=== PATIENT | male | born 1970 | race Caucasian/White ===

== ENCOUNTER 2020-08-10 09:09 | Emergency (ER) | payer OTHER ==
[~2020-08-10] VITALS: Ht 167.6 cm; Wt 58.1 kg
[2020-08-10] MEDS ORDERED: PEPCID AC10 MG PO (09:14)
[2020-08-10 09:30] LABS: ABSOLUTE EOSINOPHILS 0.1 thou/uL (0.0-0.7); ABSOLUTE LYMPHOCYTES 2.1 thou/uL (0.8-5.3); ABSOLUTE MONOCYTES 0.8 thou/uL (0.0-1.2); ABSOLUTE NEUTROPHILS 7.8 thou/uL (1.6-8.1); BASOPHILS 0.3 %; EOSINOPHILS 0.5 %; HEMATOCRIT 30.3 % (42.0-52.0); HEMOGLOBIN 8.9 gm/dL (14.0-18.0); LYMPHOCYTES 19.6 %; MCH 23.4 pg (26.0-34.0); MCHC 29.5 g/dL (28.0-37.0); MCV 79.3 fL (80.0-100.0); MONOCYTES 7.1 %; MPV 6.8 fl. (7.2-11.1); NUCLEATED RBCS 0 /100WBC; PLATELET COUNT* 319 thou/uL (150-400); POLYS 72.5 %; RBC 3.82 mil/uL (4.50-6.00); RDW-CV 20.7 % (10.5-14.5); WBC 10.7 thou/uL (4.0-11.0)
[2020-08-10 09:39] LABS: CALCIUM 7.7 mg/dL (8.5-10.1); CREATININE 1.1 mg/dL (0.6-1.3); POTASSIUM 3.3 mmol/L (3.5-5.1)
[2020-08-10 09:44] LABS: APTT 25.9 Seconds (25.0-31.3); PROTIME 10.9 Seconds (9.20-11.50)
[2020-08-10 09:47] LABS: ALBUMIN 2.4 g/dL (3.4-5.0); TOTAL BILIRUBIN 0.3 mg/dL (<0.1-1.0); TOTAL PROTEIN 6.1 g/dL (6.4-8.2)
[2020-08-10] MEDS ORDERED: PROTONIX40 M4 PO (11:40)
[2020-08-10 11:45] VITALS: BP 177/102
--- NOTE | 2020-08-11 09:19 | EKG ---
[place] [address] ELECTROCARDIOGRAM REPORT Name: ELDER TUCKER Room: [facility]#: [id number] Admission: 08/10/20 Attend Phys: Discharge: 08/10/20 Date of : 74 Date of Service: 08/10/20924 Report #: [id number] THIS REPORT FOR: //name// [facility] ED Test Date: 2020-08-10 Test Time: 09:25:52 Pat Name: ELDER CAITLIN Department: Room: Gender: [employer] Preparation Teacher: : 1970 Requested By: Dawit Ware Order Number: [id number] MD: Elder Steinberg Measurements Intervals [place] Rate: 89 P: 85 CA: 123 QRS: 89 QRSD: 99 T: 79 QT: 395 QTc: 481 Interpretive Statements Sinus rhythm Biatrial enlargement Minimal ST depression, lateral leads Borderline prolonged QT interval Baseline wander in lead(s) V4 No previous ECG available for comparison Electronically Signed On 08-11-2020 9:19:20 [employer] by Elder Steinberg [email or web address] <ELECTRONICALLY SIGNED> By: Elder Steinberg MD, [facility] 08/11/20918 4 4 Elder Steinberg MD, [facility] /EPI
== END 2020-08-10 11:45 | disposition home or self-care (01) ==
LOC: M.ERS 09:09
PROVIDERS: Family Medicine
DX: R11.2 Nausea with vomiting, unspecified (principal); F10.129 Alcohol abuse with intoxication, unspecified; Z79.899 Other long term (current) drug therapy; Z88.6 Allergy status to analgesic agent; Y90.3 Blood alcohol level of 60-79 mg/100 ml